=== PATIENT | female | born 1940 | race Caucasian/White ===

== ENCOUNTER 2018-09-30 10:00 | Emergency (ER) | payer MEDICARE ==
[~2018-09-30] VITALS: Ht 162.6 cm; Wt 67.3 kg
[2018-09-30 10:10] VITALS: Ht 162.6 cm; Wt 67.3 kg
[2018-09-30] MEDS ORDERED: FAMVIR500 MG PO (11:22)
[2018-09-30 11:29] VITALS: BP 132/072
== END 2018-09-30 11:29 | disposition home or self-care (01) ==
LOC: D.ER 10:00
DX: B02.9 Zoster without complications (principal); I10 Essential (primary) hypertension; I25.10 Atherosclerotic heart disease of native coronary artery without angina pectoris